=== PATIENT | female | born 1985 | race Caucasian/White ===

== ENCOUNTER → 2018-11-29 | Outpatient (CLI) | payer BC ==
[2018-11-29 08:56] LABS: HCT 45.4 % (34.0-46.0); HGB 14.9 gm/dL (11.4-16.0); MCH 29.1 pg (25.0-35.0); MCHC 32.9 g/dL (31.0-37.0); MCV 88.4 fL (80.0-100.0); Mean Platelet Volume 6.4; Platelet Count 490 k/uL (150-450); RBC 5.13 m/uL (3.80-5.40); RDW 15.6 % (11.5-15.5); WBC 13.9 k/uL (3.8-10.6)
[2018-11-29 10:14] LABS: Erythrocyte Sedimentation Rate 31 mm/hr (0-20)
[2018-11-29 16:11] LABS: C Reactive Protein 5.5 mg/dL (0.0-0.8)
[2018-11-29 16:40] LABS: Rheumatoid Factor <4 IU/mL (0-15); Streptolysin O Ab(ASO) 133 IU/mL (0-200)
[2018-11-30 09:51] LABS: Lyme IgG/IgM 0.04 Index
[2018-11-30 12:25] LABS: HLA B27 NEGATIVE
== END | disposition home or self-care (01) ==
LOC: LABWHC1 07:52
PROVIDERS: ATTEND Orthopaedic Surgery
DX: M76.61 Achilles tendinitis, right leg (principal); M76.62 Achilles tendinitis, left leg; M25.571 Pain in right ankle and joints of right foot; M25.572 Pain in left ankle and joints of left foot; M06.9 Rheumatoid arthritis, unspecified
CPT/HCPCS: 36415; 84443; 85027; 85652; 86038; 86060; 86140; 86431; 86618; 86812

== ENCOUNTER → 2022-07-29 | Outpatient (CLI) | payer BC ==
--- NOTE | 2022-07-30 06:37 | MR ---
EXAMINATION TYPE: MR brain wo/w con DATE OF EXAM: 07/29/2022 COMPARISON: NONE HISTORY: Left eye vision issues, double vison for 2 weeks TECHNIQUE: Multiplanar, multisequence images of the brain and brainstem is performed without and with IV contras t, utilizing 6.5 mL intravenous Gadavist . FINDINGS: Diffusion weighted images demonstrate no evidence of a recent infarct or other diffusion ab normality. There is no extra-axial fluid collection or significant white matter signal abnormality. The ventricular system and cisternal spaces are normal in size and appearance. The brain volume is age appropriate. Midline structures demonstrate normal morphology. Suprasellar cistern is maintained. The craniocervic al junction appears within normal limits. Post contrast images demonstrate no abnormal enhancement. The dural venous sinuses appear patent. The visualized sinuses are clear. The globes appear intact bi laterally. IMPRESSION: Unremarkable study.
== END | disposition home or self-care (01) ==
LOC: RADMRIMAIN 19:25
PROVIDERS: ATTEND Ophthalmology
DX: H49.23 Sixth [abducent] nerve palsy, bilateral (principal); H53.2 Diplopia
CPT/HCPCS: 70553; A9585

== ENCOUNTER → 2022-08-01 | Outpatient (CLI) | payer BC ==
--- NOTE | 2022-08-02 08:52 | MR ---
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 D ouble vision.\ TECHNIQUE: Multi planar, multi sequence imaging was performed through the orbits/face. Post contrast imaging was performed after the administration of 6.5 cc of Gadavist intravenously. FINDINGS, ORBITS: The globes appear symmetrical. Left optic nerve has increased signal on postcontra st enhancement series 501 image 9 and may be mildly thickened compared to the contralateral side. The intraorbital fat appears preserved. Both lacrimal glands are unremarkable. The extraocular muscles appear symmetric. IMPRESSION: Subtle asymmetric increased left optic nerve enhancement correlate for optic neuritis.
== END | disposition home or self-care (01) ==
LOC: RADMRIMAIN 20:30
PROVIDERS: ATTEND Ophthalmology
DX: H53.2 Diplopia (principal); H49.23 Sixth [abducent] nerve palsy, bilateral
CPT/HCPCS: 70543; A9585

== ENCOUNTER → 2022-08-22 | Outpatient (CLI) | payer BC ==
[2022-08-24 09:26] LABS: Hepatitis B Surface Antigen Nonreactive; Hepatitis C IgG Antibody Nonreactive
== END | disposition home or self-care (01) ==
LOC: LABWHC1 15:55
PROVIDERS: ATTEND Nurse Practitioner Family
DX: K50.90 Crohn's disease, unspecified, without complications (principal)
CPT/HCPCS: 36415; 86480; 86704; 86803; 87340